=== PATIENT | female | born 1975 | race Caucasian/White ===

== ENCOUNTER 2022-02-03 08:55 | Emergency (ER) | payer SELFPAY ==
[2022-02-03] MEDS ORDERED: ONDANSETRON 4 MG/2 ML VIAL ONE (09:58)
[2022-02-03] MEDS ORDERED: NA CHLORIDE 0.9% 1,000 ML ONE ×2 (09:58→11:47)
[2022-02-03] MEDS ORDERED: MORPHINE 4 MG/ML SYR ONE (09:58)
[2022-02-03 10:14] LABS: Urine Blood 2+ (Negative); Urine Glucose Trace (Negative); Urine Protein 1+ (Negative)
--- NOTE | 2022-02-03 10:18 | RAD REPORT ---
EXAM DESCRIPTION: CT - Stone Protocol - 02/03/2022 9:53 am CLINICAL HISTORY: Abdominal pain. Left flank pain COMPARISON: None. TECHNIQUE: Computed axial tomography of the abdomen pelvis was obtained without oral or IV contrast. Lack of IV and oral contrast limits evaluation of solid organs, appendix, bowel, and vessels. Zhong l reformatted images were obtained and reviewed. All CT scans are performed using dose optimization technique as appropriate and may include automated exposure control or mA/KV adjustment according to patient size. FINDINGS: 7 millimeter calculus left UPJ with moderate left hydronephrosis. Left perirenal stranding and small amount of ill-defined fluid. Tiny nonobstructing right renal calculi The liver, spleen, pancreas and adrenals appear grossly normal There is no evidence of diverticulitis. The appendix appears normal No adnexal mass Small umbilical hernia Calcified granuloma left lung Small amount of ascites. Spondylosis L5-S1 IMPRESSION: 7 millimeter calculus left UPJ with moderate left hydronephrosis
[2022-02-03 10:23] LABS: Absolute Lymphocytes (CBC) 1.5 K/uL (0.7-4.9); Hematocrit 39.3 % (36.0-45.0); MCV 90.9 fL (80-100); MPV 8.3 fL (7.6-11.3); RBC Red Blood Cell Count 4.33 M/uL (3.86-4.86)
[2022-02-03 10:25] LABS: Urine Bacteria NONE SEEN /HPF (<20)
[2022-02-03 10:37] LABS: Bilirubin Total 0.3 mg/dL (0.2-1.0); Potassium 3.6 mmol/L (3.5-5.1); Protein, Total 6.5 g/dL (6.4-8.2)
[2022-02-03] MEDS ORDERED: TAMSULOSIN 0.4 MG SR CAP ONE (10:47)
[2022-02-03] MEDS ORDERED: Magnesium Sulfate 2gm IVPB 2 G/50 ML BAG IV ONE (10:48)
[2022-02-03] MEDS ORDERED: KETOROLAC 30 MG/ML INJ ONE (11:47)
--- NOTE | 2022-02-03 13:56 | EDPHYS ---
Physician Documentation [facility] Name: Melanie Wall Age: 46 yrs Sex: Female : 1975 Arrival Date: 02/03/2022 Time: 08:57 Bed 18 Private MD: ED Physician Marco Zuniga HPI: 02/03 09:40 This 46 yrs old Female presents to ER via Ambulatory with complaints of jmm Urinary Retention, Flank Pain - 8mm kidney stone, Nausea. 09:40 The patient complains of pain in the left flank. Onset: The symptoms/episode jmm began/occurred gradually, 3 day(s) ago. Modifying factors: The symptoms are alleviated by nothing. the symptoms are aggravated by nothing. This is a 46-year-old female with history of previous kidney stones the presents emerged part with complaints of left flank pain. This episode of flank pain began approximately 3 days ago and was seen at [facility] ED and diagnosed with an 8 mm stone. Patient states that she has had the stone for over a year with intermittent episodes of pain. Also complains of vomiting. Denies diarrhea. Historical: - Allergies: 09:20 Cephalexin Monohydrate; bp - PMHx: 09:20 Kidney stone; bp - Immunization history:: Adult Immunizations up to date. - Social history:: Smoking status: Patient reports the use of cigarette tobacco products, denies chronic smoking, but will smoke occasionally. ROS: 09:40 Constitutional: Negative for fever, chills, and weight loss, Cardiovascular: Negative jmm for chest pain, palpitations, and edema, Respiratory: Negative for shortness of breath, cough, wheezing, and pleuritic chest pain. 09:40 Abdomen/GI: Positive for abdominal pain. 09:40 Back: Positive for flank pain, on the left. 09:40 All other systems are negative. Exam: 09:40 Constitutional: This is a well developed, well nourished patient who is awake, alert, jmm and in no acute distress. Head/Face: atraumatic. Eyes: EOMI, no conjunctival erythema appreciated ENT: Moist Mucus Membranes Neck: Trachea midline, Supple Chest/axilla: Normal chest wall appearance and motion. Cardiovascular: Regular rate and rhythm. No edema appreciated Respiratory: Normal respirations, no respiratory distress appreciated 09:40 Back: Normal ROM Skin: General appearance color normal MS/ Extremity: Moves all extremities, no obvious deformities appreciated, no edema noted to the lower extremities Neuro: Awake and alert Psych: Behavior is normal, Mood is normal, Patient is cooperative and pleasant 09:40 Abdomen/GI: Inspection: abdomen appears normal, Bowel sounds: normal, Palpation: soft, moderate abdominal tenderness, in the left flank. Vital Signs: 09:10 BP 144 / 100; Pulse 94; Resp 18; Temp 98.6(O); Pulse Ox 99% on R/A; Weight 83.91 kg; kirk Height 5 ft. 3 in. (160.02 cm); 10:55 BP 131 / 74; Pulse 79; Resp 16; Pulse Ox 97% ; bp 12:26 BP 118 / 66; Pulse 86; Resp 16; Pulse Ox 97% ; bp 14:21 BP 115 / 78; Pulse 79; Resp 16; Pulse Ox 95% ; bp 09:10 Body Mass Index 32.77 (83.91 kg, 160.02 cm) kirk MDM: 09:40 Patient medically screened. [facility] 13:54 Data reviewed: vital signs, nurses notes. Counseling: I had a detailed discussion with omkar the patient and/or guardian regarding: the historical points, exam findings, and any diagnostic results supporting the discharge/admit diagnosis, lab results, radiology results, the need for outpatient follow up, to return to the emergency department if symptoms worsen or persist or if there are any questions or concerns that arise at home. ED course: Labs unremarkable. Patient advised to follow-up with urology for further evaluation otherwise given strict return precautions. Patient understood agrees plan of care. 02/03 09:40 Order name: CBC with Diff; Complete Time: 10:28 [facility] 02/03 09:40 Order name: CMP; Complete Time: 10:37 [facility] 02/03 09:40 Order name: Lipase; Complete Time: 10:37 [facility] 02/03 09:52 Order name: Urine Culture [facility] 02/03 09:52 Order name: Urine Microscopic Only; Complete Time: 10:28 [facility] 02/03 10:14 Order name: Urine Dipstick-Ancillary; Complete Time: 10:17 [facility] 02/03 09:41 Order name: CT Stone Protocol; Complete Time: 10:20 [facility] 02/03 10:15 Order name: Urine --Ancillary (enter results); Complete Time: 10:35 em1 02/03 09:40 Order name: IV Saline Lock; Complete Time: 10:13 [facility] 02/03 09:40 Order name: Labs collected and sent; Complete Time: 10: [facility] 02/03 09:52 Order name: Urine Dipstick-Ancillary (obtain specimen); Complete Time: 10:14 [facility] Administered Medications: 10:10 Drug: NS 0.9% 1000 ml Route: IV; Rate: 1 bolus; Site: left antecubital; bp 11:23 Follow up: IV Status: Completed infusion; IV Intake: 1000ml bp 10:10 Drug: Zofran (Ondansetron) 4 mg Route: IVP; Site: left antecubital; bp 11:23 Follow up: Response: No adverse reaction bp 10:10 Drug: morphine 4 mg Route: IVP; Infused Over: 4 mins; Site: left antecubital; bp 11:22 Follow up: Response: No adverse reaction; Pain is decreased bp 10:45 Drug: Magnesium Sulfate 2 grams Route: IVPB; Infused Over: 2 hrs; Site: left bp antecubital; 14:23 Follow up: IV Status: Completed infusion; IV Intake: 50ml bp 10:45 Drug: Flomax (tamsulosin) 0.4 mg Route: PO; bp 11:23 Follow up: Response: No adverse reaction bp 11:22 Drug: NS 0.9% 1000 ml Route: IV; Rate: 1 bolus; Site: left antecubital; bp 14:23 Follow up: IV Status: Completed infusion; IV Intake: 1000ml bp 11:43 Drug: Ketorolac 30 mg Route: IVP; Site: left antecubital; bp 14:22 Follow up: Response: Pain is decreased bp Disposition: 14:55 I agree with the assessment and plan of care. kdr Disposition Summary: 02/03/22 13:55 Discharge Ordered Location: Home [facility] Condition: Stable rani Diagnosis - Calculus of kidney with calculus of ureter [facility] Followup: omkar - With: Seymour London MD - When: 1 - 2 days - Reason: Recheck today's complaints, Continuance of care, Re-evaluation by your physician Discharge Instructions: - Discharge Summary Sheet rani - Kidney Stones [facility] Forms: - Medication Reconciliation Form [facility] - Thank You Letter omkar - Antibiotic Education jmm - Prescription Opioid Use jmm - Work release form eb Prescriptions: - Ultracet 37.5-325 mg Oral Tablet - take 1 tablet by ORAL route every 6 hours - for up to 5 days; do not exceed 8 jmm tablets per day.; 20 tablet; Refills: 0, Product Selection Permitted - Flomax 0.4 mg Oral capsule - take 1 capsule by ORAL route once daily 1/2 hour following the same meal each [facility] day; 10 capsule; Refills: 0, Product Selection Permitted - ondansetron 4 mg Oral tablet,disintegrating - place 1 tablet by TRANSLINGUAL route every 4 hours As needed; 20 tablet; [facility] Refills: 0, Product Selection Permitted - Cipro 500 mg Oral Tablet - take 1 tablet by ORAL route every 12 hours for 10 days; 20 tablet; Refills: 0, [facility] Product Selection Permitted Signatures: Dispatcher [employer] Marco Duvall MD MD kdr Mickail, Joel, PA PA [facility] Preet Hillman RN RN bp Au-Stager, Heather, RN RN kirk
--- NOTE | 2022-02-03 13:56 | ER ---
Nurse's Notes [facility] Name: Melanie Wall Age: 46 yrs Sex: Female : 1975 Arrival Date: 02/03/2022 Time: 08:57 Bed 18 Private MD: Diagnosis: Calculus of kidney with calculus of ureter Presentation: 02/03 09:10 Chief complaint: Patient states: pt reports recently dx of kidney stones, frequency, kirk and unable to void. Coronavirus screen: Vaccine status: Patient reports being unvaccinated. Ebola Screen: Patient denies travel to an Ebola-affected area in the 21 days before illness onset. Initial Sepsis Screen: Does the patient meet any 2 criteria? HR > 90 bpm. Does the patient have a suspected source of infection? No. Patient's initial sepsis screen is negative. Risk Assessment: Do you want to hurt yourself or someone else? Patient reports no desire to harm self or others. Onset of symptoms was January 31, 2022. 09:10 Method Of Arrival: Ambulatory kirk 09:10 Acuity: JONI 3 kirk Triage Assessment: 09:15 General: Appears distressed, uncomfortable, Behavior is calm, cooperative, appropriate bp for age. Pain: Complains of pain in left flank. EENT: No deficits noted. Neuro: No deficits noted. Cardiovascular: No deficits noted. Respiratory: No deficits noted. GI: Reports LEFT FLANK PAIN. : Reports inability to void, pain in left flank(s). Derm: No deficits noted. Musculoskeletal: No deficits noted. Historical: - Allergies: 09:20 Cephalexin Monohydrate; bp - PMHx: 09:20 Kidney stone; bp - Immunization history:: Adult Immunizations up to date. - Social history:: Smoking status: Patient reports the use of cigarette tobacco products, denies chronic smoking, but will smoke occasionally. Screenin:20 Abuse screen: Denies threats or abuse. Denies injuries from another. Nutritional bp screening: No deficits noted. Tuberculosis screening: No symptoms or risk factors identified. Fall Risk None identified. Assessment: 09:15 General: SEE TRIAGE NOTE. bp 10:55 Reassessment: No changes from previously documented assessment. Patient and/or family bp updated on plan of care and expected duration. Pain level reassessed. GI: Abdomen is non-distended. 12:27 Reassessment: IVF INFUSING. bp 14:21 Reassessment: PT D/C HOME AMBULATORY WITH FAMILY, DX WITH URETERAL CALCULUS. bp Vital Signs: 09:10 BP 144 / 100; Pulse 94; Resp 18; Temp 98.6(O); Pulse Ox 99% on R/A; Weight 83.91 kg; kirk Height 5 ft. 3 in. (160.02 cm); 10:55 BP 131 / 74; Pulse 79; Resp 16; Pulse Ox 97% ; bp 12:26 BP 118 / 66; Pulse 86; Resp 16; Pulse Ox 97% ; bp 14:21 BP 115 / 78; Pulse 79; Resp 16; Pulse Ox 95% ; bp 09:10 Body Mass Index 32.77 (83.91 kg, 160.02 cm) kirk ED Course: 08:57 Patient arrived in ED. as 09:12 Triage completed. kirk 09:13 Preet Hilmlan, RN is Primary Nurse. bp 09:15 Arm band placed on. bp 09:20 Patient has correct armband on for positive identification. Bed in low position. Call bp light in reach. Side rails up X2. Adult w/ patient. 09:29 Jono Marx PA is PHCP. [facility] 09:29 Marco Zuniga MD is Attending Physician. jmm 09:55 CT Stone Protocol In Process Unspecified. EDMS 10:10 Inserted saline lock: 22 gauge in left antecubital area, using aseptic technique. Blood bp collected. 13:55 Seymour London MD is Referral Physician. jmm 14:21 No provider procedures requiring assistance completed. IV discontinued, intact, bp bleeding controlled, No redness/swelling at site. Pressure dressing applied. Administered Medications: 10:10 Drug: NS 0.9% 1000 ml Route: IV; Rate: 1 bolus; Site: left antecubital; bp 11:23 Follow up: IV Status: Completed infusion; IV Intake: 1000ml bp 10:10 Drug: Zofran (Ondansetron) 4 mg Route: IVP; Site: left antecubital; bp 11:23 Follow up: Response: No adverse reaction bp 10:10 Drug: morphine 4 mg Route: IVP; Infused Over: 4 mins; Site: left antecubital; bp 11:22 Follow up: Response: No adverse reaction; Pain is decreased bp 10:45 Drug: Magnesium Sulfate 2 grams Route: IVPB; Infused Over: 2 hrs; Site: left bp antecubital; 14:23 Follow up: IV Status: Completed infusion; IV Intake: 50ml bp 10:45 Drug: Flomax (tamsulosin) 0.4 mg Route: PO; bp 11:23 Follow up: Response: No adverse reaction bp 11:22 Drug: NS 0.9% 1000 ml Route: IV; Rate: 1 bolus; Site: left antecubital; bp 14:23 Follow up: IV Status: Completed infusion; IV Intake: 1000ml bp 11:43 Drug: Ketorolac 30 mg Route: IVP; Site: left antecubital; bp 14:22 Follow up: Response: Pain is decreased bp Medication: 09:20 VIS not applicable for this client. bp Intake: 11:23 IV: 1000ml; Total: 1000ml. bp 14:23 IV: 1000ml; Total: 2000ml. bp 14:23 IV: 50ml; Total: 2050ml. bp Outcome: 13:55 Discharge ordered by . omkar 14:21 Discharged to home ambulatory, with family. bp 14:21 Condition: stable 14:21 Discharge instructions given to patient, Instructed on discharge instructions, follow up and referral plans. medication usage, Demonstrated understanding of instructions, follow-up care, medications, Prescriptions given X 4. 14:23 Patient left the ED. bp Signatures: Dispatcher [employer] EDMS Jono Marx PA PA jmm Martinez, Amelia as Peltier, Brian, RN RN bp Au-StagerRamona RN RN kirk
[2022-02-03 14:29] VITALS: TEMP 98.6
[2022-02-03 14:37] VITALS: BP 115/78; O2SAT 95
== END 2022-02-03 14:23 | disposition home or self-care (01) ==
LOC: ER 08:55
DX: N20.2 Calculus of kidney with calculus of ureter (principal); R33.9 Retention of urine, unspecified; R10.9 Unspecified abdominal pain; N20.0 Calculus of kidney; R11.0 Nausea; Z88.1 Allergy status to other antibiotic agents
CPT/HCPCS: 36415; 74176; 76377; 80053; 81003; 81015; 81025; 83690; 85025; 87086; 87088; 96361; 96365; 96366; 96375; 99284; J2405; J3475; J7030

== ENCOUNTER 2022-02-11 14:56 | Inpatient (IN) | payer SELFPAY ==
[2022-02-11 16:01] LABS: Absolute Lymphocytes (CBC) 1.5 K/uL (0.7-4.9); Hematocrit 33.6 % (36.0-45.0); Lymphocytes % 13.2 % (15.3-44.8); MCV 88.6 fL (80-100); MPV 7.3 fL (7.6-11.3); RBC Red Blood Cell Count 3.79 M/uL (3.86-4.86)
[2022-02-11 16:11] LABS: Urine Bacteria NONE SEEN /HPF (<20); Urine RBC NONE SEEN /HPF (NONE SEEN)
[2022-02-11 16:17] LABS: Albumin 2.9 g/dL (3.4-5.0); Bilirubin Total 0.1 mg/dL (0.2-1.0); Potassium 3.5 mmol/L (3.5-5.1); Protein, Total 6.6 g/dL (6.4-8.2)
[2022-02-11] MEDS ORDERED: HYDROMORPHONE HCL 1 MG/ML INJ ONE (16:38)
[2022-02-11] MEDS ORDERED: PIPERACIL/TAZO 3.375 GM VIAL IV ONE (16:38)
[2022-02-11] MEDS ORDERED: ONDANSETRON 4 MG/2 ML VIAL ONE (16:38)
[2022-02-11] MEDS ORDERED: NA CHLORIDE 0.9% 100 ML ONE (16:38)
[2022-02-11] MEDS ORDERED: NA CHLORIDE 0.9% 1,000 ML ONE (16:38)
--- NOTE | 2022-02-11 17:03 | EDPHYS ---
Physician Documentation [facility] Name: Melanie Wall Age: 46 yrs Sex: Female : 1975 Arrival Date: 02/11/2022 Time: 14:58 Bed 19 Private MD: ED Physician Madi Anton HPI: 02/11 16:30 This 46 yrs old Female presents to ER via Ambulatory with complaints of Flank Pain. cp 16:30 The patient complains of pain in the left flank. cp 16:30 The pain does not radiate. cp 16:30 Onset: The symptoms/episode began/occurred about 2 weeks. Associated signs and cp symptoms: Pertinent positives: fever, nausea, vomiting. Severity of pain: in the emergency department the pain is unchanged despite home interventions. Patient reports she was scheduled to have ureter stent placed today with DR London but procedure was canceled. 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 - Social history:: Smoking status: Patient reports the use of cigarette tobacco products, smokes one-half pack cigarettes per day, Patient uses street drugs, marijuana. ROS: 16:35 Abdomen/GI: Positive for nausea and vomiting, Negative for diarrhea, constipation. cp 16:35 Constitutional: Negative for fever. cp 16:35 Respiratory: Negative for cough, shortness of breath, wheezing. 16:35 Back: Positive for flank pain, on the left. 16:35 Cardiovascular: Negative for chest pain, palpitations. cp 16:35 Eyes: Negative for injury, pain, redness, and discharge. cp 16:35 ENT: Negative for drainage from ear(s), ear pain, sore throat, difficulty swallowing, difficulty handling secretions. 16:35 : Positive for urinary symptoms. 16:35 Neuro: Negative for altered mental status, dizziness, headache, weakness. 16:35 All other systems are negative. Exam: 16:40 Constitutional: The patient appears in no acute distress, alert, awake, non-toxic, well cp developed, well nourished, in obvious pain, uncomfortable. 16:40 Head/Face: Normocephalic, atraumatic. cp 16:40 Eyes: Periorbital structures: appear normal, Conjunctiva: normal, no exudate, no injection, Sclera: no appreciated abnormality, Lids and lashes: appear normal, bilaterally. 16:40 ENT: External ear(s): are unremarkable, Nose: is normal, Mouth: Lips: moist, Oral mucosa: moist, Posterior pharynx: Airway: no evidence of obstruction, patent. 16:40 Chest/axilla: Inspection: normal. 16:40 Cardiovascular: Rate: tachycardic, Rhythm: regular, Edema: is not appreciated, JVD: is not appreciated. 16:40 Respiratory: the patient does not display signs of respiratory distress, Respirations: normal, no use of accessory muscles, no retractions, labored breathing, is not present, Breath sounds: are clear throughout, no decreased breath sounds, no stridor, no wheezing. 16:40 Abdomen/GI: Inspection: abdomen appears normal, Bowel sounds: active, all quadrants, cp Palpation: soft, in all quadrants, moderate abdominal tenderness, in the posterior aspect of left lateral abdomen and anterior aspect of left lateral abdomen, rebound tenderness, is not appreciated, involuntary guarding, is not appreciated. 16:40 Skin: cellulitis, is not appreciated, no rash present. cp 16:40 Neuro: Orientation: to person, place \\T\\ time. Mentation: is normal, Motor: moves all fours, strength is normal, Sensation: is normal. Vital Signs: 15:07 BP 125 / 81; Pulse 121; Resp 17; Temp 99.3; Pulse Ox 95% ; Weight 86.18 kg; Height 5 ap3 ft. 3 in. (160.02 cm); 16:20 BP 109 / 46 Supine; Pulse 105; Resp 17; Pulse Ox 96% ; Pain 10/10; tw2 17:00 BP 121 / 81; Pulse 95; Resp 17; Pulse Ox 95% on R/A; tw2 17:56 BP 115 / 85; Pulse 96; Resp 17; Pulse Ox 97% on R/A; tw2 18:37 BP 120 / 87; Pulse 95; Resp 17; Pulse Ox 96% on R/A; Pain 8/10; tw2 21:15 BP 134 / 87; Pulse 95; Resp 18; Pulse Ox 95% on R/A; sm5 15:07 Body Mass Index 33.66 (86.18 kg, 160.02 cm) ap3 MDM: 15:38 Patient medically screened. cp 16:35 Data reviewed: vital signs, nurses notes, lab test result(s). cp 16:35 Physician consultation: Seymour London MD was called at 16:30, was contacted at 16:30, cp regarding consult, patient's condition, would like admission per Dr. Anibal Lopez will place ureter stent tomorrow. 17:02 Patient medically screened. 02/11 15:38 Order name: CBC with Diff; Complete Time: 16:20 02/11 16:21 Interpretation: Normal except: WBC 11.7; RBC 3.79; HGB 11.1; HCT 33.6; PLT 413; MPV cp 7.3; VIK% 76.6; LYM% 13.2; NEUT A 9.0. 02/11 15:38 Order name: CMP; Complete Time: 16:20 02/11 17:00 Interpretation: Normal except: GLUC 137; CRE 1.52; GFR 43; AST 11; BILIT 0.1; ALB 2.9; cp GLOB 3.7; A/G 0.8. 02/11 15:38 Order name: Lipase; Complete Time: 16:20 02/11 15:38 Order name: Urine Microscopic Only; Complete Time: 16:20 02/11 16:28 Order name: Lactate; Complete Time: 18:28 02/11 16:28 Order name: Procalcitonin; Complete Time: 18:28 02/11 15:38 Order name: IV Saline Lock; Complete Time: 16:16 02/11 15:38 Order name: Labs collected and sent; Complete Time: 15:54 02/11 16:28 Order name: Blood Culture Adult (2) 02/11 17:01 Order name: SARS-COV-2 RT PCR (Document "Date of Onset" if Symptomatic); Complete Time: kj1 18:28 02/11 15:38 Order name: Urine Dipstick-Ancillary (obtain specimen); Complete Time: 15:39 cp Administered Medications: 16:50 Drug: Dilaudid (HYDROmorphone) 1 mg {Note: RASS 0.} Route: IVP; Site: left antecubital; tw2 17:21 Follow up: Response: No adverse reaction; Nausea is decreased tw2 17:22 Follow up: Response: No adverse reaction; Pain is decreased; RASS: Alert and Calm (0) tw2 16:50 Drug: NS 0.9% 1000 ml Route: IV; Rate: 1 bolus; Site: left antecubital; tw2 18:13 Follow up: Response: No adverse reaction; IV Status: Completed infusion; IV Intake: tw2 1000ml 16:50 Drug: Zofran (Ondansetron) 4 mg Route: IVP; Site: left antecubital; tw2 17:22 Follow up: Response: No adverse reaction; Nausea is decreased tw2 17:21 Drug: Zosyn (piperacillin-tazobactam) 3.375 grams Route: IVPB; Infused Over: 60 mins; tw2 Site: left antecubital; 18:31 Follow up: Response: No adverse reaction; IV Status: Completed infusion; IV Intake: tw2 100ml Disposition: 02/12 07:23 Co-signature as Attending Physician, Madi Anton MD. rn Disposition Summary: 02/11/22 17:02 Hospitalization Ordered Hospitalization Status: Observation cp Provider: Anibal Lopez cp Location: Telemetry/MedSurg (observation) cp Condition: Stable cp Problem: an ongoing problem cp Symptoms: have improved cp Bed/Room Type: Standard cp Room Assignment: 208(02/11/22 20:42) cg Diagnosis - Calculus of ureter - left cp Forms: - Medication Reconciliation Form cp - SBAR form cp Signatures: Dispatcher [employer] Madi Wong MD MD rn Page, Corey, PA PA cp Yolanda Diggs RN RN Leti Naqvi RN RN tw2 Silvia Segundo RN RN ap3 Arlet Jiménez PA PA sb3 Corrections: (The following items were deleted from the chart) 02/11 17:00 16:59 Normal except: GLUC 137; CRE 1.52; GFR 43. cp cp 17:00 17:00 Normal except: GLUC 137; CRE 1.52; GFR 43; AST 11. cp cp 17:00 17:00 Normal except: GLUC 137; CRE 1.52; GFR 43; AST 11; BILIT 0.1. cp cp 20:42 17:02 cp cg
--- NOTE | 2022-02-11 17:03 | ER ---
Nurse's Notes [facility] Name: Melanie Wall Age: 46 yrs Sex: Female : 1975 Arrival Date: 02/11/2022 Time: 14:58 Bed 19 Private MD: Diagnosis: Calculus of ureter-left Presentation: 02/11 15:02 Chief complaint: Patient states: she believes she has a kidney stone. patient states ap3 she was supposed to have a procedure done today with dr. del real for a stent placement, but she was unable to get it done. patient complains of pain in her left flank area. patient also reports difficulty urinating. 15:02 Method Of Arrival: Ambulatory ap3 15:07 Coronavirus screen: At this time, the client does not indicate any symptoms associated ap3 with coronavirus-19. Ebola Screen: No symptoms or risks identified at this time. Initial Sepsis Screen: Does the patient meet any 2 criteria? HR > 90 bpm. No. Patient's initial sepsis screen is negative. Does the patient have a suspected source of infection? Yes: Dysuria/Frequency/Urgency/UTI. Risk Assessment: Do you want to hurt yourself or someone else? Patient reports no desire to harm self or others. Onset of symptoms was January 31, 2022. 15:07 Acuity: JONI 3 ap3 Triage Assessment: 15:09 General: Appears uncomfortable, Behavior is calm, cooperative. Pain: Complains of pain ap3 in posterior aspect of left lateral abdomen Pain began gradually, over the last 2 weeks. Neuro: Level of Consciousness is awake, alert, obeys commands, Oriented to person, place, time, situation. Cardiovascular: Patient's skin is warm and dry. Respiratory: Airway is patent Respiratory effort is even, unlabored. : Reports pain in left flank(s), urgency, urinary frequency. 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 - Social history:: Smoking status: Patient reports the use of cigarette tobacco products, smokes one-half pack cigarettes per day, Patient uses street drugs, marijuana. Screenin:09 Abuse screen: Denies threats or abuse. Nutritional screening: No deficits noted. ap3 Tuberculosis screening: No symptoms or risk factors identified. 15:39 Fall Risk None identified. tw2 Assessment: 16:01 Reassessment: No changes from previously documented assessment. Patient and/or family tw2 updated on plan of care and expected duration. Pain level reassessed. Patient is alert, oriented x 3, equal unlabored respirations, skin warm/dry/pink. provider notified of pts pain Patient states symptoms have not improved. 16:20 Reassessment: provider at bedside at this time. tw2 17:57 Reassessment: Patient and/or family updated on plan of care and expected duration. Pain tw2 level reassessed. Patient is alert, oriented x 3, equal unlabored respirations, skin warm/dry/pink. Patient states feeling better. 18:37 Reassessment: Patient and/or family updated on plan of care and expected duration. Pain tw2 level reassessed. Patient is alert, oriented x 3, equal unlabored respirations, skin warm/dry/pink. pt c/o pain again. provider notified. Patient states symptoms have not improved. Vital Signs: 15:07 BP 125 / 81; Pulse 121; Resp 17; Temp 99.3; Pulse Ox 95% ; Weight 86.18 kg; Height 5 ap3 ft. 3 in. (160.02 cm); 16:20 BP 109 / 46 Supine; Pulse 105; Resp 17; Pulse Ox 96% ; Pain 10/10; tw2 17:00 BP 121 / 81; Pulse 95; Resp 17; Pulse Ox 95% on R/A; tw2 17:56 BP 115 / 85; Pulse 96; Resp 17; Pulse Ox 97% on R/A; tw2 18:37 BP 120 / 87; Pulse 95; Resp 17; Pulse Ox 96% on R/A; Pain 8/10; tw2 21:15 BP 134 / 87; Pulse 95; Resp 18; Pulse Ox 95% on R/A; sm5 15:07 Body Mass Index 33.66 (86.18 kg, 160.02 cm) ap3 ED Course: 14:58 Patient arrived in ED. am2 15:07 Domenico Bardales PA is PHCP. cp 15:07 Madi Anton MD is Attending Physician. cp 15:08 Triage completed. ap3 15:09 Arm band placed on right wrist. ap3 15:38 Leti Naqvi, ELISSA is Primary Nurse. tw2 15:38 Bed in low position. Call light in reach. Pulse ox on. NIBP on. tw2 15:54 Missed attempt(s): 20 gauge in left antecubital area. Bleeding controlled, band aid tw2 applied, catheter tip intact. Missed attempt(s): 22 gauge in left antecubital area. blood collected, notified ELISSA Pierce of need for IV at this time. 16:00 Inserted saline lock: 22 gauge in right antecubital area, using aseptic technique. kr3 Blood collected. 16:44 IV discontinued, intact, bleeding controlled, No redness/swelling at site. Pressure tw2 dressing applied, infiltration noted, notified ELISSA Starr charge nurse of need for IV. Charlie Juárez at bedside for iv attempt and bloodwork at this time. 16:54 Initial lab(s) drawn, by me, sent to lab. First set of blood cultures drawn by me. mb4 16:56 Inserted saline lock: 22 gauge in left antecubital area, using aseptic technique. Blood mb4 collected. 16:57 Lactate Sent. tw2 16:57 Procalcitonin Sent. tw2 17:02 Anibal Lopez is Hospitalizing Provider. cp 21:15 No provider procedures requiring assistance completed. sm5 Administered Medications: 16:50 Drug: Dilaudid (HYDROmorphone) 1 mg {Note: RASS 0.} Route: IVP; Site: left antecubital; tw2 17:21 Follow up: Response: No adverse reaction; Nausea is decreased tw2 17:22 Follow up: Response: No adverse reaction; Pain is decreased; RASS: Alert and Calm (0) tw2 16:50 Drug: NS 0.9% 1000 ml Route: IV; Rate: 1 bolus; Site: left antecubital; tw2 18:13 Follow up: Response: No adverse reaction; IV Status: Completed infusion; IV Intake: tw2 1000ml 16:50 Drug: Zofran (Ondansetron) 4 mg Route: IVP; Site: left antecubital; tw2 17:22 Follow up: Response: No adverse reaction; Nausea is decreased tw2 17:21 Drug: Zosyn (piperacillin-tazobactam) 3.375 grams Route: IVPB; Infused Over: 60 mins; tw2 Site: left antecubital; 18:31 Follow up: Response: No adverse reaction; IV Status: Completed infusion; IV Intake: tw2 100ml Medication: 15:39 VIS not applicable for this client. tw2 Intake: 18:13 IV: 1000ml; Total: 1000ml. tw2 18:31 IV: 100ml; Total: 1100ml. tw2 Outcome: 17:02 Decision to Hospitalize by Provider. cp 21:15 Admitted to Med/surg accompanied by tech, via wheelchair, with chart, Report called to kendall Grissom RN 21:15 Condition: stable 21:15 Instructed on the need for admit. 21:35 Patient left the ED. bb Signatures: Cindy Lucas RN RN bb Dmoenico Bardales PA PA cp Leti Naqvi, RN RN tw2 Silvia Munson am2 Silvia Segundo RN RN ap3 Miranda Mccormack 4 Marah Estrada RN RN 5 Nancy Garcia, RN RN kr3
--- NOTE | 2022-02-11 20:07 | P.HP ---
Certification for Inpatient Patient admitted to: Observation With expected LOS: <2 Midnights Patient will require the following post-hospital care: None Practitioner: I am a practitioner with admitting privileges, knowledge of patient current condition, hospital course, and medical plan of care. Services: Services provided to patient in accordance with Admission requirements found in Title 42 Section 412.3 of the Code of Federal Regulations Patient History Date of Service: 02/11/22 Reason for admission: Nephrolithiasis History of Present Illness: Patient is a 46-year-old female who presented to the ED with complaints of left- sided flank pain and UTI symptoms. Patient was seen in the ED about 1.5 weeks ago with similar symptoms. CT showed "7 millimeter calculus left UPJ with moderate left hydronephrosis" She was discharged with antibiotics and flomax and scheduled for outpatient stent placement today with Dr. London. Due to a financial issue, the surgery was cancelled. She presents today with temp of 99.3, tachycardia, WBC 11.7, Cr 1.52. Dr. Gustafsons was contacted and has agreed to place stent tomorrow morning. She was started on zosyn in ED. She is admitted to hospitalist service. Allergies cephalexin monohydrate [From Keflex] Allergy (Intermediate, Verified 11/01/11 16:52) Hives/Rash Home medications list reviewed: Yes Home Medications: Aspirin/Acetaminophen/Caffeine [Excedrin Migraine Caplet] 1 each PO DAILY 02/11/22 Cyclobenzaprine HCl [Flexeril] 10 mg PO DAILY 02/11/22 Etodolac 500 mg PO DAILY 02/11/22 Gabapentin 300 mg PO BID 02/11/22 Lamotrigine [Lamictal] 100 mg PO DAILY 02/11/22 - Past Medical/Surgical History Diabetic: No -: Nephrolithiasis -: TIA -: Factor V Leiden Past Surgical History: Patient denies surgical history Psychosocial/ Personal History: Patient lives at home with family. - Family History Mother -: Heart disease, Cancer, Other (see notes) Notes: FACTOR 5 - Social History Smoking Status: Current every day smoker Alcohol use: Yes CD- Drugs: Yes Caffeine use: Yes Place of Residence: Home Review of Systems General: As per HPI Genitourinary: Frequency, Urgency Physical Examination - Physical Exam General: Alert, In no apparent distress HEENT: Atraumatic, PERRLA, EOMI, Sclerae nonicteric Neck: Supple, 2+ carotid pulse no bruit, No LAD, Without JVD or thyroid abnormality Respiratory: Clear to auscultation bilaterally, Normal air movement Cardiovascular: Regular rate/rhythm, Normal S1 S2 Gastrointestinal: Normal bowel sounds, No tenderness Musculoskeletal: No tenderness Integumentary: No rashes Neurological: Normal gait, Normal speech, Normal strength at 5/5 x4 extr, Normal tone, Normal affect - Studies Laboratory Data (last 24 hrs) 02/11/22 15:50: Sodium 139, Potassium 3.5, BUN 10, Creatinine 1.52 H, Glucose 137 H, Total Bilirubin 0.1 L, AST 11 L, ALT 16, Alkaline Phosphatase 65, Lipase 84 02/11/22 15:50: WBC 11.7 H D, Hgb 11.1 L, Hct 33.6 L, Plt Count 413 H D Assessment and Plan - Problems (Diagnosis) (1) Nephrolithiasis Current Visit: Yes Status: Acute (2) Leukocytosis Current Visit: Yes Status: Acute Qualifiers: Leukocytosis type: unspecified Qualified Code(s): D72.829 - Elevated white blood cell count, unspecified (3) ERIKA (acute kidney injury) Current Visit: Yes Status: Acute - Plan -NPO at midnight -Continue zosyn and IV fluids -Urology to place stent tomorrow -Monitor and replete electrolytes per protocol -Reconcile and continue home medications -Lovenox for VTE prophylaxis -Full code Discharge Plan: Home Plan to discharge in: 24 Hours - Advance Directives Does patient have a Living Will: No Does patient have a Durable POA for Healthcare: No - Code Status/Comfort Care Code Status Assessed: Yes (Full) Critical Care: No Time Spent Managing Pts Care (In Minutes): 50
[2022-02-11] MEDS ORDERED: ONDANSETRON 4 MG/2 ML VIAL IV PRN (21:54)
[2022-02-11] MEDS ORDERED: ACETAMINOPHEN 500 MG TAB PO PRN (21:54)
[2022-02-11] MEDS ORDERED: DIPHENHYDRAMINE 50 MG/ML VIAL IV PRN (21:54)
[2022-02-11] MEDS ORDERED: HYDRALAZINE HCL 20 MG/ML VIAL IV PRN (21:54)
[2022-02-11] MEDS ORDERED: MELATONIN 5 MG TABLET PO PRN (21:54)
[2022-02-11] MEDS: HYDROMORPHONE HCL 1 MG/ML INJ IV PRN (22:52)
[2022-02-11] MEDS: NA CHLORIDE 0.9% 1,000 ML IV SCH (22:55)
[2022-02-12 00:01] VITALS: BMI 33.6
[2022-02-12] MEDS ORDERED: POTASSIUM CL SA 10 MEQ TAB PO ONE (00:07)
[2022-02-12] MEDS: PIPER TAZO 3.375 GM in NA CHLORIDE 0.9% 100 ML IV SCH ×3 (00:32→18:55)
[2022-02-12] MEDS: HYDROMORPHONE HCL 1 MG/ML INJ IV PRN ×4 (03:07→17:03)
[2022-02-12 06:19] LABS: Potassium 3.9 mmol/L (3.5-5.1)
[2022-02-12] MEDS ORDERED: KCL 20 MEQ/100 mL IVPB 20 MEQ/100 ML BAG IV SCH (08:00)
[2022-02-12] MEDS ORDERED: ENOXAPARIN 40 MG/0.4 ML SQ SCH (09:00)
[2022-02-12] MEDS: NA CHLORIDE 0.9% 1,000 ML IV SCH ×2 (09:43→17:54)
[2022-02-12] MEDS ORDERED: NA CHLORIDE 0.9% 100 ML ONE (09:49)
--- NOTE | 2022-02-12 15:08 | P.PN ---
Subjective Date of Service: 02/12/22 Chief Complaint: Nephrolithiasis Patient complaining of left flank pain. Serum creatinine trended down. No recorded fever. Physical Examination - Vital Signs Temperature: 98.8 F Blood Pressure: 135/86 Pulse: 91 Respirations: 18 Pulse Ox (%): 97 - Physical Exam General: Alert, In no apparent distress, Oriented x3 HEENT: Mucous membr. moist/pink Neck: Supple, JVD not distended Respiratory: Clear to auscultation bilaterally, Normal air movement Cardiovascular: No edema, Regular rate/rhythm, Normal S1 S2 Gastrointestinal: Normal bowel sounds, Soft and benign, Non-distended, No tenderness Musculoskeletal: Tenderness (Left flank) Integumentary: No rashes, No cyanosis Neurological: Normal strength at 5/5 x4 extr - Studies Laboratory Data (last 24 hrs) 02/12/22 05:44: Magnesium 1.8 02/12/22 05:44: Sodium 141, Potassium 3.9, BUN 9, Creatinine 1.34 H, Glucose 85 02/11/22 15:50: Sodium 139, Potassium 3.5, BUN 10, Creatinine 1.52 H, Glucose 137 H, Total Bilirubin 0.1 L, AST 11 L, ALT 16, Alkaline Phosphatase 65, Lipase 84 02/11/22 15:50: WBC 11.7 H D, Hgb 11.1 L, Hct 33.6 L, Plt Count 413 H D Assessment And Plan - Current Problems (Diagnosis) (1) ERIKA (acute kidney injury) Current Visit: Yes Status: Acute (2) Nephrolithiasis Current Visit: Yes Status: Acute - Plan Continue IV Zosyn. UA is negative for UTI. Blood cultures pending. Pain management as needed. Urology consulted. Dr. London is planning urologic procedure today. Renal function is improving. Continue to monitor renal function.
[2022-02-12 15:29] LABS: Urine Appearance Clear (Clear); Urine Blood Trace-intact (Negative); Urine Color Yellow (Yellow); Urine Glucose Negative (Negative); Urine Protein Negative (Negative); Urine Urobilinogen 0.2 mg/dL (0.2-1.0); Urine pH 7.5 (5.0-7.0)
[2022-02-12 15:48] LABS: Urine Bacteria NONE SEEN /HPF (<20); Urine Bilirubin 1+ (Negative)
[2022-02-12] MEDS ORDERED: FENTANYL CITR 100 MCG/2 ML ONE (17:43)
[2022-02-12] MEDS ORDERED: propofoL 200 MG/20 ML VIAL IV ONE (17:43)
[2022-02-12] MEDS ORDERED: MIDAZOLAM HCL 2 MG/2 ML INJ ONE (17:43)
[2022-02-12] MEDS ORDERED: LIDOCAINE 1% MPF 5 ML VIAL ONE (17:44)
[2022-02-12] MEDS ORDERED: dexAMETHasone 10 MG/ML VIAL ONE (17:44)
[2022-02-12] MEDS ORDERED: ONDANSETRON 4 MG/2 ML VIAL ONE (17:45)
[2022-02-12] MEDS ORDERED: Ringers Lactate 1,000 ML IV ONE (17:52)
[2022-02-12] MEDS ORDERED: ALBUTEROL 2.5 MG/3 ML NEB SOL ONE (17:52)
[2022-02-12] MEDS ORDERED: KETOROLAC 30 MG/ML INJ ONE (18:01)
--- NOTE | 2022-02-12 19:00 | P.CNS ---
Date of Consult: 02/12/22 46-year-old woman with factor V Leiden deficiency not on home anticoagulation presents with 7 mm proximal left ureteral calculus. She had been seen in 3 different urgent cares/emergency departments prior to her visit with me a week ago Thursday. She was scheduled for elective ureteral stent placement on Thursday, but the surgery was canceled due to a financial issue. Patient subsequently returned to the emergency department Thursday evening with malaise, but she had been afebrile. Creatinine in the emergency department was elevated at 1.5 over her baseline around 1.1. As a result, she was admitted for acute kidney injury. -I counseled the patient extensively on 2 separate occasions about having a left ureteral stent placed. I explained in no uncertain terms that people often find having a stent in place to be as uncomfortable as dealing with obstruction from a kidney stone. I further explained that once the stent is placed, there is no emergency relative to surgical management, and she would need a return to the operating room for definitive management via ureteroscopy and laser lithotripsy. Because we do not have a holmium laser available in house, and because there is a significant chance that given the degree of her pain she may have ureteral spasm prohibiting ureteroscopic intervention at this time, I explained that we would not be able to manage the stone today. As a result, she has 6 months maximum to make the financial arrangements necessary to return for operative management. I counseled her strongly on not following up in the relevant timeframe relative to the risk of stent encrustation and complicated ureteral injury. -She expressed understanding of the potential downsides to having a stent and the risks associated, and she suggested she had a financial plan in mind to manage this going forward. Plan: Cystoscopy with left retrograde pyelography and stent placement I counseled her on the potential need for percutaneous nephrostomy tube placement if we are unable to place a stent today Follow-up for definitive ureteroscopic management. Plan for postoperative discharge.
[2022-02-12] MEDS ORDERED: PHENAZOPYRIDINE 100MG TAB PO ONE (19:35)
--- NOTE | 2022-02-12 19:41 | RAD REPORT ---
EXAM DESCRIPTION: RAD - Urethrocystogrphy Retrograde - 02/12/2022 7:35 pm FINDINGS: There were 5 portable KUB images obtained during fluoroscopic assisted placement of a left ureteral stent. Fluoro time was 8 seconds. Cumulative dose was 2.9 mGy.
--- NOTE | 2022-02-12 19:43 | P.DS ---
Admission Date: 02/11/22 Discharge Date: 02/12/22 Disposition: ROUTINE DISCHARGE Discharge Condition: GOOD Reason for Admission: Nephrolithiasis - Problems (1) ERIKA (acute kidney injury) Status: Acute (2) Nephrolithiasis Status: Acute Brief History of Present Illness: Patient is a 46-year-old female who presented to the ED with complaints of left- sided flank pain and UTI symptoms. Patient was seen in the ED about 1.5 weeks ago with similar symptoms. CT showed "7 millimeter calculus left UPJ with moderate left hydronephrosis" She was discharged with antibiotics and flomax and scheduled for outpatient stent placement with Dr. London. Due to a financial issue, the surgery was cancelled. She presented to the ED with temp of 99.3, tachycardia, WBC 11.7, Cr 1.52. Dr. Marquez was contacted and agreed to place stent as inpatient. She was started on zosyn in ED. She was admitted to hospitalist service. Hospital Course: Patient admitted to the medical floor and treated with IV Zosyn. She was seen by urology Dr. London who performed urologic procedure with left ureteral stent placement. Patient was discharged to home after the procedure. Vital Signs/Physical Exam: Temp Pulse Resp BP Pulse Ox 99.3 F 89 16 147/88 H 98 02/12/22 16:00 02/12/22 16:00 02/12/22 16:00 02/12/22 16:00 02/12/22 16:00 General: Alert, In no apparent distress HEENT: Mucous membr. moist/pink Neck: JVD not distended Respiratory: Clear to auscultation bilaterally, Normal air movement Cardiovascular: Regular rate/rhythm Gastrointestinal: Soft and benign, Non-distended Musculoskeletal: No swelling Integumentary: No rashes Neurological: Normal strength at 5/5 x4 extr Laboratory Data at Discharge: WBC 11.7 K/uL (4.3-10.9) H D 02/11/22 15:50 Hgb 11.1 g/dL (12.0-15.0) L 02/11/22 15:50 Hct 33.6 % (36.0-45.0) L 02/11/22 15:50 Plt Count 413 K/uL (152-406) H D 02/11/22 15:50 Sodium 141 mmol/L (136-145) 02/12/22 05:44 Potassium 3.8 mmol/L (3.5-5.1) 02/12/22 10:17 BUN 9 mg/dL (7-18) 02/12/22 05:44 Creatinine 1.34 mg/dL (0.55-1.3) H 02/12/22 05:44 Glucose 85 mg/dL (74-106) 02/12/22 05:44 Magnesium 1.8 mg/dL (1.8-2.4) 02/12/22 05:44 Total Bilirubin 0.1 mg/dL (0.2-1.0) L 02/11/22 15:50 AST 11 U/L (15-37) L 02/11/22 15:50 ALT 16 U/L (12-78) 02/11/22 15:50 Alkaline Phosphatase 65 U/L (45-117) 02/11/22 15:50 Lipase 84 U/L (73-393) 02/11/22 15:50 Home Medications: Aspirin/Acetaminophen/Caffeine [Excedrin Migraine Caplet] 1 each PO DAILY 02/11/22 Cyclobenzaprine HCl [Flexeril] 10 mg PO DAILY 02/11/22 Etodolac 500 mg PO DAILY 02/11/22 Gabapentin 300 mg PO BID 02/11/22 Lamotrigine [Lamictal] 100 mg PO DAILY 02/11/22 Diphenhydramine [Benadryl*] 12.5 mg IV Q6H PRN vial 02/12/22 Hydrocodone 5/APAP 325 [Shelly 5/325] 1 tab PO Q6H PRN #12 tab 02/12/22 New Medications: Hydrocodone 5/APAP 325 [Shelly 5/325] 1 tab PO Q6H PRN #12 tab PRN Reason: Pain Diet: Low sodium Activity: Ad christa Followup: Seymour London [ACTIVE - CAN ADMIT] - (Contact my office to arrange follow-up for definitive management surgically as soon as your financial arrangements can be completed. Please ensure that this is all done within 6 months maximum to prevent complications associated with prolonged retention of the stent. ) FARAZ YING [Primary Care Provider] - 1-2 Weeks Time spent managing pt's care (in minutes): 32
[2022-02-12] MEDS ORDERED: HYDROMORPHONE HCL 1 MG/ML INJ ONE (19:47)
[2022-02-12 19:52] VITALS: O2SAT 99
[2022-02-12 20:11] VITALS: BP 127/75; TEMP 97.9
--- NOTE | 2022-02-13 11:11 | OP ---
Surgeon: JUVENTINO DOBBS Preoperative Diagnoses: 1.Left proximal ureterolithiasis, 7 mm. 2.Acute kidney injury. 3.Intractable pain. Postoperative Diagnoses: 1.Left proximal ureterolithiasis, 7 mm. 2.Acute kidney injury. 3.Intractable pain. Principal Procedures: 1.Cystoscopy. 2.Left retrograde pyelography. 3.Left ureteral stent placement. Indication For Procedure: Ms. Wall presented via the Emergency Department for the fourth time wi th issues of malaise and intractable pain associated with an obstructing left 7 mm proximal ureteral calculus. Because she had signs of acute kidney injury, she was admitted, and while the acute kidney injury did improve, she had persistent malaise and intractable pain. As a result, she was counseled about the potential benefits to left ureteral stent placement, but also the significant likelihood o f stent discomfort as well as the need for definitive surgical management, maximum within 6 months to prevent complications of stent encrustation, etc. Procedure In Detail: The patient was consented in the preoperative holding area before being transfe rred to the operative suite where general anesthesia using an LMA was induced. She was given Zosyn I V antimicrobial therapy on the floor since her inpatient admission. Pneumoboots were provided for DV T prophylaxis. She was placed in the lithotomy position, padded and secured to the table appropriate ly. Her genitalia were prepped using Hibiclens and draped in standard fashion. The case was begun u sing a 22-Chinese rigid cystoscope to traverse the urethra and into the bladder with ease. The bladde r was surveyed, and no mucosal lesions, foreign bodies or stones were noted throughout. The ureteral orifices were orthotopic in location, and the left ureteral orifice was cannulated using the tip of a 5-Chinese ureteral access catheter. A retrograde pyelogram was then performed. Left retrograde pyelography: Using a 70:30 mixture of Omnipaque and saline, contrast was injected vi a the 5-Chinese ureteral access catheter and did propagate up a minimally dilated ureter before enteri ng a moderately hydronephrotic renal pelvis with some moderate caliectasis. Thus via the 5-Chinese ur eteral access catheter, I passed a Sensor wire into the upper pole of the kidney where it coiled fluo roscopically. Over the Sensor wire, I then passed a 6-Chinese x 24 cm double-J ureteral stent, where a coil was formed fluoroscopically in the upper pole and one cystoscopically within the bladder. Her bladder was then decompressed of fluid and urine, and the scope was removed. She was taken out of t he lithotomy position, awakened from general anesthesia, transferred to a stretcher, and then transfe rred to the recovery room in good condition. Complications: None. Discharge Disposition: She should follow up for definitive surgical management, which if it can take place within 30 days, we will simply schedule accordingly. If not, she should be seen in followup i n the office closer to the time she is prepared for definitive management financially. Otherwise, we will plan clinic followup at a maximum 4 months from now, so that we might plan on removal of the st ent before the risk of encrustation becomes an eventuality at 6 months. JOSE J/VIDHI Voice ID: [id number] Report ID: [id number]
--- OUTSIDE RECORDS SUMMARY | 2022-02-20 01:56 | XMS REPORT | Continuity of Care Document ---
:1975 Author Organization [facility] t Address [address] [place] [address] Care Team Providers Name Role Phone BEAR GALLEGOILY Ki Primary Care Physician Unavailable Jenny CRESPO Attending Clinician Unavailable Tomasz HASSAN Attending Clinician Unavailable SOURAV Attending Clinician Unavailable Tony RHODES Attending Clinician Margaret Huff MD Attending Clinician Sourav RHODES Attending Clinician Jenny Garcia Attending Clinician Nimco_P Attending Clinician Unavailable SOURAV Admitting Clinician Unavailable Sourav RHODES Admitting Clinician Nimco_P Admitting Clinician Unavailable Payers Payer Name Policy Type Policy Number Effective Date Expiration Date [place] childs HTW-[id number] 2021 00:00:00 Problems Condition Condition Condition Status Onset Resolution Last Treating Co mments Source Name Details Category Date Date Treatment Clinician Date Left flank Left flank Disease Active U nivers pain pain 7-03 ity of 00:00: [address] Lesion of Lesion of Disease Active Uni vers female female 1-27 ity of perineum perineum 00:00: [address] Obesity Obesity Disease Active Univers (BMI (BMI 1-27 ity of 30-39.9) 30-39.9) 00:00: [address] Encounter Encounter Disease Active Uni vers for for 27 ity of surveillan surveillan [place] ce of Medical other other Branch contracept contracept shahla shahla Dyspareuni Dyspareuni Disease Active U nivers a, female a, female 7-13 ity of 00:00: [place] [facility] Urinary Urinary Disease Active Univers frequency frequency 7- ity of 00:: [place] [facility] Vaginal Vaginal Disease Active Univers discharge discharge 7-13 ity of 00:: [place] [facility] BMI BMI Disease Active Univers 25.0-25.9, 25.0-25.9, 7-13 it y of adult adult 00:00: Medical Branch Pain Pain Disease Active Univers pelvic pelvic 4-06 ity of 00:00: [place] [facility] Tobacco Tobacco Disease Active Univers use use 1-31 ity of disorder disorder 00:00: [place] [facility] Pap smear Pap smear Disease Active Overview: Univers abnormalit abnormalit 05-02 Formattin ity of y of y of 00:00: g of this [place] cervix/hum cervix/hum 00 note Me dical an an might be 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 See result review Screening Screening Disease Active Uni vers examinatio examinatio 04-28 it y of n for STD n for STD 00:00: [place] s (sexually (sexually 00 [facility] transmitte transmitte Br anch d disease) d disease) History of History of Disease Active U nivers bilateral bilateral 04-28 ity of tubal tubal 00:00: [place] ligation ligation 00 Medica l Branch Allergies, Adverse Reactions, Alerts Allergy Allergy Status Severity Reaction(s) Onset Inactive Treating Comm ents Source Name Type Date Date Clinician Naproxen Propensi Active Nausea Univer s Sodium ty to and/or 6-30 ity of adverse Vomiting 00:00: [place] reaction 00 Medical s Branch Naproxen Propensi Active Nausea Univer s ty to and/or 6-30 ity of adverse Vomiting 00:00: [place] reaction 00 Medical s Branch NAPROXEN DRUG Active N/V 2020-0 Univers SODIUM INGREDI 6-30 ity of 00:00: [address] NAPROXEN DRUG Active N/V 2020-0 Univers INGREDI 6-30 ity of 00:00: [address] Social History Social Habit Start Date Stop Date Quantity Comments Source History of tobacco 2002-04-28 Cigarette Smoker University of use 00:00:00 [facility] History SDOH University o f Alcohol Comment [place] [facility] History SDOH University o f Alcohol Frequency [facility] edical Branch History SDWI University o f Alcohol Std Drinks [facility] Exposure to 2022-01-22 2022-02-01 Not sure University SARS-CoV-2 (event) 00:00:00 21:09:00 [facility] Alcohol intake 2022-02-01 2022-02-01 .29 /d University of 00:00:00 00:00:00 [facility] Cigarettes smoked 2019-04-28 2019-04-28 Univers ity of current (pack per 00:00:00 00:00:00 [facility] ) - Reported Eros Tobacco use and 2019-04-28 2019-04-28 Never used Universit y of exposure 00:00:00 00:00:00 [facility] History SDOH 2019-04-28 2019-04-28 5 University o f Alcohol Binge 00:00:00 00:00:00 [facility] Sex Ass[birth year] Universit y of 00:00:00 00:00:00 [facility] Smoking Status Start Date Stop Date Source Current every day smoker 2019-04-28 00:00:00 Uni versity of [facility] Medications Ordered Filled Start Stop Current Ordering Indication Dosage Frequency Signature Comments Components Source Medication Medication Date Date Medication? Clinician (SIG) Name Name tamsulosin Yes .4mg 0.4 mg, Univ ers (FLOMAX) 7-04 Oral, QHS, ity o f capsule 0.4 02:00: First dose [place] mg 00 on [facility] 02/02/22 at Branch 2100, Until Discontinu ed, Routine enoxaparin Yes 40mg 40 mg, Unive rs (LOVENOX) 7-03 Subcutaneo ity of injection 22:00: [place], [place] 40 [place] 00 First dose Medical on [facility] 02/02/22 at 1700, Until Discontinu ed, Routine sennosides Yes 8.6mg 8.6 mg, Uni vers (SENOKOT) 02-02 Oral, ity of tablet 8.6 14:00: DAILY, [place] mg 00 First dose Medical on [facility] 02/02/22 at 0900, Until Discontinu ed, Routine gabapentin Yes 300mg 300 mg, Uni vers (NEURONTIN) 02-02 Oral, TID, it y of capsule 300 13:00: First dose [place] mg 00 on [facility] 02/02/22 at Branch 0800, Until Discontinu ed, Routine acetaminoph Yes 650mg 650 mg, Un elan en 02-02 Oral, Q6H, ity of (TYLENOL) 11:00: [place] tablet 650 00 on [facility] 02/02/22 at Branch 0600, Until Discontinu ed, Routine cefTRIAXone Yes 2000mg 2,000 mg, Univers (ROCEPHIN) 02-02 Intravenou ity of injection 07:15: s, Q24H [place] 2,000 mg 00 ABX, First Medic al dose on [facility] 02/02/22 at 0215, Until Discontinu ed
Reas on for Anti-Infec tive: Empiric Therapy for Suspected Infection< br>Empiric Therapy Site: Urine
D uration of therapy: 72 hours D5W 0.45% Yes IV Univers NaCl 02-02 Infusion, ity of (1/2NS) 1 L 07:15: at 125 [place] + KCL 20 00 mL/hr, Medical mEq CONTINUOUS Branch , Starting on [place] 02/02/22 at 0215, Until Discontinu ed, Routine ketorolac Yes 15mg 15 mg, Univer s (TORADOL) 02-02 Slow IV ity of injection 06:59: Push, [place] 15 mg 17 Q6HPRN, 4 Medical doses, Branch Starting on [place] 02/02/22 at 0159, Until Discontinu ed, Routine, Pain (scale 7-10) ondansetron Yes 4mg 4 mg, Slow Univers (ZOFRAN 02-02 IV Push, ity of (PF)) 06:57: Q4HPRN, [place] injection 4 11 Starting Medi [place] mg on [place] 02/02/22 at 0157, Until Discontinu ed, Routine, Nausea and Vomiting (N/V) ondansetron No 4mg 4 mg, Slow Univers (ZOFRAN 02-02 IV Push, ity of (PF)) 05:00: 05:39 ONCE, 1 [place] injection 4 00 :00 dose, On Medi [place] mg [place] 02/02/22 Branch at 0000, CONSUELO butalbital- 2021- No 1{tbl} 1 tablet, Univers acetaminoph 02-02 Oral, ity of en-caff 05:00: 05:38 ONCE, 1 [place] (ESGIC) 00 :00 dose, On Medical 50-325-40 [place] 02/02/22 Bran ch mg tablet 1 at 0000, tablet CONSUELO morpHINE (4 No 4mg 4 mg, Slow Univers mg/mL) 02-02 IV Push, ity of injection 4 05:00: 05:39 ONCE, 1 [place] mg 00 :00 dose, On Medical [place] 02/02/22 Branch at 0000, STAT NaCl 0.9% No 2000mL at 999 Uni vers (NS) bolus 02-02 mL/hr, ity of infusion 04:00: 05:39 2,000 mL, Arm[place] as 2,000 mL 00 :00 IV Medical Infusion, Branch ONCE, 1 dose, On [facility] 02/01/22 at 2300, CONSUELO ondansetron No 4mg 4 mg, Slow Univers (ZOFRAN 02-02 IV Push, ity of (PF)) 03:00: 03:21 ONCE, 1 [place] injection 4 00 :00 dose, On Medi [place] mg [facility] 02/01/22 Branch at 2200, CONSUELO ketorolac 2021- No 30mg 30 mg, Unive rs (TORADOL) 02-02 Slow IV ity of injection 02:49: 03:21 Push, [place] 30 mg 00 :00 ONCE, 1 Medical dose, On Branch [facility] 02/01/22 at 2200, CONSUELO lamoTRIgine Yes 100mg Take 100 U nivers 100 mg 7-13 mg by ity of tablet 13:25: mouth 2 [place] 23 (two) Medical times Branch daily. lamoTRIgine 2020-0 Yes 100mg Take 100 U nivers 100 mg 7-13 mg by ity of tablet 13:25: mouth 2 [place] 23 (two) Medical times Branch daily. MELOXICAM 2020-0 Yes Take by [facility] ers ORAL 7-13 mouth. ity of 13:22: [place] 12 Medical Branch cyclobenzap 2020-0 Yes Take by Un elan rine HCl 7-13 mouth. ity of (FLEXERIL 13:22: [place] ORAL) 12 Medical Branch MELOXICAM 2020-0 Yes Take by [facility] ers ORAL 7-13 mouth. ity of 13:22: [place] 12 Medical Branch cyclobenzap 0 Yes Take by Un elan rine HCl 7-13 mouth. ity of (FLEXERIL 13:22: [place] ORAL) 12 Medical Branch Diclofenac 2020-0 Yes [id number] Apply to Univers Sodium 1 % 4-30 9107 area(s) 2 ity of gel 00:00: (two) [place] 00 times Medical daily as Branch needed for Pain (scale 4-6) (Apply 2 g do not exceed 4 g in a day). Diclofenac 0 Yes [id number] Apply to Univers Sodium 1 % 4-30 9107 area(s) 2 ity of gel 00:00: (two) [place] 00 times Medical daily as Branch needed for Pain (scale 4-6) (Apply 2 g do not exceed 4 g in a day). gabapentin 0 Yes Take by Uni vers ER 300 mg 4-22 mouth ity of tablet, 08:12: daily. [place] extended 54 Medical release 24 Branch hr methylpredn 2020-0 Yes Take by Un elan isolone 4-22 mouth. ity of (MEDROL 08:12: [place] ORAL) 54 Medical Branch gabapentin 2020-0 Yes Take by Uni vers ER 300 mg 4-22 mouth ity of tablet, 08:12: daily. [place] extended 54 Medical release 24 Branch hr methylpredn 2020-0 Yes Take by Un elan isolone 4-22 mouth. ity of (MEDROL 08:12: [place] ORAL) 54 Medical Branch Immunizations Ordered Filled Immunization Date Status Comments [facility] Branch e Immunization Name Name Td 2019-12-27 Completed University of 00:00:00 [facility] Td 2019-12-27 Completed University of 00:00:00 [facility] TDAP 2017-08-03 Completed University of 00:00:00 [facility] TDAP 2017-08-03 Completed University of 00:00:00 [facility] Vital Signs Vital Name Observation Time Observation Value Comments Source Systolic blood 2022-02-02 05:41:37 130 mm[Hg] Univer sity of pressure [facility] Diastolic blood 2022-02-02 05:41:37 85 mm[Hg] Unive rsity of pressure [facility] Heart rate 2022-02-02 05:41:37 84 /min [facility] ty [facility] Respiratory rate 2022-02-02 05:41:37 17 /min [facility] Oxygen saturation in 2022-02-02 05:41:37 97 /min [facility] Arterial blood by [facility] Pulse oximetry Branch Body temperature 2022-02-02 02:10:00 37.11 Pat [facility] Body weight 2022-02-02 02:10:00 83.915 kg [facility] BMI 2022-02-02 02:10:00 32.77 kg[facility]m2 [facility] Systolic blood 2021-09-30 21:14:00 130 mm[Hg] Univer sity of [facility] Diastolic blood 2021-09-30 21:14:00 80 mm[Hg] Unive rsity of [facility] Heart rate 2021-09-30 21:14:00 103 /min [facility] Body temperature 2021-09-30 21:14:00 36.61 Pat [facility] Respiratory rate 2021-09-30 21:14:00 16 /min [facility] Body height 2021-09-30 21:14:00 160 cm [facility] Body weight 2021-09-30 21:14:00 82.963 [facility] BMI 2021-09-30 21:14:00 32.40 kg/m2 [facility] Procedures Procedure Date / Time Performing Clinician Source Performed US RETROPERITONEAL 2022-02-02 03:57:00 Elisa Jimenez [facility] COMPLETE Medical Branch COVID-19 (ID NOW RAPID 2022-02-02 03:23:00 Elisa Jimenez Un [facility] TESTING) [facility] TEST, SERUM 2022-02-02 03:16:00 Elisa Jimenez Uni [facility] BASIC METABOLIC PANEL (NA, 2022-02-02 03:16:00 Kylee Jimenez [facility] K, CL, CO2, GLUCOSE, BUN, Medica l Branch CREATININE, CA) CBC WITH DIFF 2022-02-02 03:16:00 Elisa Jimenez [facility] URINALYSIS 2022-02-02 03:13:00 Elisa Jimenez [facility] CONSENT/REFUSAL FOR 2022-02-02 02:12:41 Doctor Unassigned, [facility] DIAGNOSIS AND TREATMENT [place] [facility] [place] Encounters Start End Encounter Admission Attending Care Care Encounter Source Date/Time Date/Time Type Type Clinicians Facility Department ID 2022-02-12 2022-02-12 [id number] Univers 14:45:00 14:45:00 CESAR [id number] ity o [facility] 2022-02-12 2022-02-12 Outpatient R SONYA [facility] [id number] Univers 14:45:00 14:45:00 GEORGE itnaseem o [facility] 2022-02-01 2022-02-02 Emergency [facility] [id number] Univers 21:11:00 02:08:00 [facility]22-[facility]-01 2022-02-02 Emergency Elisa Jimenez TRAUMA [id number] Univers 21:11:00 02:08:00 Valente Huff [place] 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 [id number] [facility] [id number] Armin as MATERNAL [id number] Med ical & CHILD [address] [place] [address] 2021-09-30 2021-09-30 Outpatient Jenny CRESPO [facility] [id number] Univers 15:00:00 15:32:02 MARIONYU luoy o f [facility] 2019-10-27 2019-10-27 [place] [id number] [place] 05:45:00 05:45:00 [id number] [facility] Results Test Description Test Time Test Comments Results Result Comments Source TEST, SERUM 2022-02-02 03:48:09 Test Item Value Reference Range Interpretation Comme nts PREG SERUM (test code = 3014293170) Negative MAXINE (test code = MAXINE) Less than 10 IU/L. ?If low titer or ectopic is suspected, resubmit specimen in 48-72 hours. [facility] (NA, K, CL, CO2, GLUCOSE, BUN, CREATININE, CA)2022-02-02 03:44:43 Test Item Value Reference Range Interpretation Comments NA (test code = 140 mmol/L 135-145 2149795062) K (test code = 3.6 mmol/L 3.5-5.0 8361342312) CL (test code = 108 mmol/L 98-108 3330981788) CO2 TOTAL (test code = 27 mmol/L 23-31 7956423080) AGAP (test code = 2-16 7224905100) BUN (test code = 13 mg/dL 7-23 3051138556) GLUCOSE (test code = 109 mg/dL 70-110 4953973023) CREATININE (test code = 1.25 mg/dL 0.50-1.04 H 9199223564) CALCIUM (test code = 7.8 mg/dL 8.6-10.6 L 1731601730) eGFR (test code = mL/min/1.73m2 9198776020) MAXINE (test code = MAXINE) Association of Glomerular Filtration Rate (GFR) and Staging of Kidney Disease* + --+ --+ ------+| GFR (mL/min/1.73 m2) ?| With Kidney Damage ?| ?Without Kidney Damage+ --------+ --------+ +| ?>90 ?| ?Stage one ?| ? Normal ?+ ---+ ---+ -------+| ?60-89 ?| ?Stage two ?| ? Decreased GFR ? + --+ --+ ------+| ?30-59 ?| ?Stage three ?| ? Stage three ? + --+ --+ ------+| ?15-29 ?| ?Stage four ? | ? Stage four ?+ ---+ ---+ -------+| ?<15 (or dialysis) ? ?| ?Stage five ? | ? Stage five ?+ ---+ ---+ -------+ *Each stage assumes the associated GFR level has been in effect for at least three months. ?Stages 1 to 5, with or without kidney disease, indicate chronic kidney disease. Notes: Determination of stages one and two (with eGFR >59mL/min/1.73 m2) requires estimation of kidney damage for at least three months as defined by structural or functional abnormalities of the kidney, manifested by either:Pathological abnormalities or Markers of kidney damage (including abnormalities in the composition of the blood or urine or abnormalities in imaging tests). Lab Interpretation Abnormal (test code = 66663-4) [facility] WITH [id number] 03:27:45 Test Item Value Reference Range Interpretation Comments WBC (test code = See_Comment H [Automated 0090-2) message] The sy stem which generated this result transmitted reference range : 4.30 - 11.10 10*3/?L. The reference range was not used to interpret this result as normal/abnormal . RBC (test code = See_Comment L [Automated 129-8) message] The sy stem which generated this result transmitted reference range : 3.93 - 5.25 10*6/?L. The reference range was not used to interpret this result as normal/abnormal . HGB (test code = 11.6 g/dL 11.6-15.0 718-7) HCT (test code = 35.0 % 35.7-45.2 L 4544-3) MCV (test code = 92.8 fL 80.6-95.5 787-2) MCH (test code = 30.8 pg 25.9-32.8 785-6) MCHC (test code = 33.1 g/dL 31.6-35.1 786-4) RDW-SD (test code = 46.6 fL 39.0-49.9 66124-1) RDW-CV (test code = 13.5 % 12.0-15.5 788-0) PLT (test code = See_Comment [Automated 777-3) message] The sy stem which generated this result transmitted reference range : 166 - 358 10*3/ ?L. The reference r charissa was not used to interpret this result as normal/abnormal . MPV (test code = 10.0 fL 9.5-12.9 66457-0) NRBC/100 WBC (test See_Comment [Automat ed code = 8084167220) message] The system which generated this result transmitted reference range : 0.0 - 10.0 /100 WBCs. The refer ence range was not u sed to interpret th is result as normal/abnormal . NRBC x10^3 (test code <0.01 See_Comment [Auto mated = 1106930994) message] The s ystem which generated this result transmitted reference range : 10*3/?L. The reference range was not used to interpret this result as normal/abnormal . GRAN MAT (NEUT) % 69.4 % (test code = 770-8) IMM GRAN % (test code 0.40 % = 0773796741) LYMPH % (test code = 20.4 % 736-9) MONO % (test code = 6.9 % 5905-5) EOS % (test code = 2.5 % 713-8) BASO % (test code = 0.4 % 706-2) GRAN MAT x10^3(ANC) 7.91 10*3/uL 1.88-7.09 H (test code = 6101996510) IMM GRAN x10^3 (test 0.05 10*3/uL 0.00-0.06 code = 7124470900) LYMPH x10^3 (test code 2.32 10*3/uL 1.32-3.29 = 731-0) MONO x10^3 (test code 0.78 10*3/uL 0.33-0.92 = 742-7) EOS x10^3 (test code = 0.28 10*3/uL 0.03-0.39 711-2) BASO x10^3 (test code 0.04 10*3/uL 0.01-0.07 = 704-7) Lab Interpretation Abnormal (test code = 04045-0) [facility]"
== END 2022-02-12 20:50 | disposition home or self-care (01) | DRG 660 ==
LOC: ER 14:56 → ERHOLD 18:34 → 2ND 21:04 → OBSVTOIN 02-12 10:17
PROVIDERS: ADMIT Internal Medicine; ATTEND Internal Medicine
PROC: 0T778DZ Dilation of Left Ureter with Intraluminal Device, Via Natural or Artificial Opening Endoscopic (ICD-10-PCS; 2022-02-12)
PROC: BT1F1ZZ Fluoroscopy of Left Kidney, Ureter and Bladder using Low Osmolar Contrast (ICD-10-PCS; principal; 2022-02-12 18:00)
DX: N20.1 Calculus of ureter (principal); N17.9 Acute kidney failure, unspecified; D68.51 Activated protein C resistance; Z86.73 Personal history of transient ischemic attack (TIA), and cerebral infarction without residual deficits; F17.210 Nicotine dependence, cigarettes, uncomplicated; Z20.822 Contact with and (suspected) exposure to COVID-19
CPT/HCPCS: 36415; 51610; 74450; 80048; 80053; 81003; 81015; 81025; 83605; 83690; 83735; 84132; 84145; 85025; 87040; 96361; 96365; 96375; 99285; G0378; J1100; J1170; J1650; J2250; J2405; J2543; J2704; J3010; J3480; J7030; J7120; U0003